=== PATIENT | female | born 1950 | race Caucasian/White ===

== ENCOUNTER 2020-06-03 13:20 | Outpatient (CLI) | payer BC ==
[2020-06-03 14:41] LABS: Hemoglobin 13.9 g/dL (12.0-15.5); Mean Corpuscular HGB CONC 32.7 g/dL (32.0-36.0); Mean Corpuscular Volume 88.5 fl (81.6-98.3); Mean Platelet Volume 9.1 fl (7.4-10.4); Platelet Count 271 10x3/uL (150-450); RBC Distribution Width 13.2 % (11.5-14.5); White Blood Cell (WBC) Count 5.7 10x3/uL (3.5-10.5)
[2020-06-03 14:56] LABS: Anion Gap 13 mmol/L (10-20); BUN (Urea Nitrogen) 17 mg/dL (9.8-20.1); Calc. Creatinine Clearance 0 mL/min (70-130); Calcium 9.7 mg/dL (7.8-10.44); Carbon Dioxide 26 mmol/L (23-31); Chloride 103 mmol/L (98-107); Glucose 91 mg/dL (80-115); Potassium 4.1 mmol/L (3.5-5.1); Sodium 138 mmol/L (136-145)
[2020-06-04 03:55] LABS: SARS-CoV-2 PCR by NAA Not Detected (NotDetected)
== END 2020-06-03 13:21 | disposition home or self-care (01) ==
LOC: CSHLAB 13:20
PROVIDERS: ATTEND Podiatrist Foot & Ankle Surgery
DX: Z01.818 Encounter for other preprocedural examination (principal); Z20.822 Contact with and (suspected) exposure to COVID-19; M20.11 Hallux valgus (acquired), right foot; M77.41 Metatarsalgia, right foot; M20.41 Other hammer toe(s) (acquired), right foot
CPT/HCPCS: 80048; 85027; 87635; 93005; 93010; U0003; U0005

== ENCOUNTER 2020-06-08 10:52 | Day surgery (SDC) | payer BC ==
[~2020-06-08 10:52] MED LIST: Bupivacaine PF 0.5% 30 ML VIAL ONE; Neomycin-Polymyxin 1 ML AMP ONE
[2020-06-08] MEDS ORDERED: Fentanyl 100 MCG/2 ML VIAL ONE ×2 (12:52→14:09)
[2020-06-08] MEDS ORDERED: Midazolam HCl 2 mg/2 ml Vial ONE (12:52)
[2020-06-08] MEDS ORDERED: Lidocaine 1% PF 5 ML VIAL ONE (12:52)
[2020-06-08] MEDS ORDERED: PROPOFOL 20 ML ONE ×2 (12:52→13:20)
[2020-06-08] MEDS ORDERED: Ondansetron PF 4 MG/2 ML Vial ONE (12:52)
[2020-06-08] MEDS ORDERED: Ketorolac Tromethamine 30 MG/ML VIAL ONE (12:52)
[2020-06-08] MEDS ORDERED: Dexamethasone 20 MG/5 ML VIAL ONE (12:52)
[2020-06-08] MEDS ORDERED: ePHEDrine 50 MG/ML VIAL ONE (13:19)
[2020-06-08] MEDS ORDERED: PHENYLEPHRINE-NS 100 MCG/ML 10 ML SYRINGE ONE (13:38)
[2020-06-08] MEDS ORDERED: ROPIVACAINE HCL NERVE BLCK SCH (13:45)
[2020-06-08] MEDS ORDERED: Glycopyrrolate 0.2 MG/ML 5 ML SYRINGE ONE (14:29)
== END 2020-06-08 16:53 | disposition home or self-care (01) ==
LOC: CSHSDC 10:52
PROVIDERS: ATTEND Podiatrist Foot & Ankle Surgery
DX: M20.11 Hallux valgus (acquired), right foot (principal); M77.41 Metatarsalgia, right foot; M20.41 Other hammer toe(s) (acquired), right foot
CPT/HCPCS: 76000; C1713; J0690; J1100; J1885; J2250; J2405; J2704; J2795; J3010; J3490; S0020